=== PATIENT | female | born 1995 | race Asian ===

== ENCOUNTER 2025-05-17 16:31 | Emergency (ER) | payer OTHER, SELFPAY ==
[2025-05-17 16:37] VITALS: BP 127/83
[2025-05-17 17:03] LABS: Hematocrit 38.8 % (37.0-47.0); Hemoglobin 13.1 g/dL (12.0-16.0); Mean Corp Hgb Conc. 33.8 g/dL (33.0-37.0); Mean Corpuscular Volume 86.6 fL (81.0-99.0); Nucleated Red Blood Cells % 0 %; Platelet Count 276 10^3/uL (130-400); Red Cell Dist. Width 12.5 % (11.5-14.5)
[2025-05-17 17:16] LABS: HCG, Serum Qualitative Screen Negative
[2025-05-17 17:20] LABS: ALT (SGPT) 14 U/L (0-35); AST (SGOT) 19 U/L (14-36); Albumin 4.6 g/dl (3.5-5.0); Alkaline Phosphatase 61 U/L (38-126); Blood Urea Nitrogen 6 mg/dl (7-17); Calcium 9.4 mg/dl (8.4-10.2); Carbon Dioxide 25 mmol/L (22-30); Chloride 105 mmol/L (98-107); Glucose 110 mg/dl (70-99); Potassium 3.4 mmol/L (3.5-5.1); Sodium 137 mmol/L (135-145); Total Protein 7.4 g/dl (6.3-8.2); eGFR > 60.00
--- NOTE | 2025-05-17 20:12 | ED.GENMED ---
History of Present Illness
<Mandy Jara MD, Resident - Last Filed: 05/17/25 21:44>
General
Chief Complaint: Headache
Source: patient
Exam Limitations: none
Time Seen by Provider: 05/17/25 19:52
Nursing documentation reviewed up to this point in time: agreed with
History of Present Illness
History of Present Illness:
29-year-old female with no significant past medical history comes to the ED due to having headaches for the past month and a half which have been increasing in intensity and frequency. She describes the headaches as mainly in the front of her head
occasionally goes to the back forming a crown on her head. The used to only last 1 to 2 hours but now they can last the whole day. She says the pain is lingering and is now more sharp. She also describes that she has been getting some blurry
vision alongside the headaches now. She has tried Tylenol Advil and some [id number] migraine medications which seem she does not remember but none of them helped. She was recently on a mission trip to the [facility] [place] in mid March and
she says that her symptoms seem to have gotten worse since then. She does report having some nausea alongside of it and she has been drinking a lot of water. Nausea has been causing her to not eat as much but she tries to have a regular diet. She
does not report any fever but has been noticing some more chills. She does not have any allergies. She does report some numbness in her legs but that is due to her chronic lower back pain that she says has been going on for a long time. Is not
currently taking any meds. She went to urgent care today was told her that she needs to go to the ED to get a CT scan to rule out any intracranial abnormalities.
Past History
<Mandy Jara MD, Resident - Last Filed: 05/17/25 21:44>
Past History
ED Past Medical History: None
ED Past Surgical History: None
Review of Systems
<Mandy Jara MD, Resident - Last Filed: 05/17/25 21:44>
Review of Systems
Allergies reviewed?: Yes
Constitutional: Reports chills
EENT: Reports no symptoms
Respiratory: Reports no symptoms
Cardiac: Reports no symptoms
ABD/GI: Reports nausea; Denies abdominal pain, vomiting or diarrhea
: Reports no symptoms
Musculoskeletal: Reports no symptoms
Skin: Reports no symptoms
Neurological: Reports headache; Denies dizzy, weakness or numbness
Endocrine: Reports no symptoms
Hematologic/Lymphatic: Reports no symptoms
Psychiatric: Reports no symptoms
Phy Exam
<Mandy Jara MD, Resident - Last Filed: 05/17/25 21:44>
General Physical Exam
General Presentation: well appearing and mild distress
General Skin: warm and dry
General Habitus: normal
General Mental: alert
General Hydration: appears well hydrated
Cardiovascular Exam
Cardiovascular Exam: regular rate/rhythm, no edema and no murmur
Pulmonary Exam
Pulmonary Exam: lungs clear, no respiratory distress, no crackles and no wheezing
Gastrointestinal Exam
Gastrointestinal Exam: normal bowel sounds, non tender, soft and non distended
Neurological Exam
Neurological Exam: alert, oriented x3, no motor deficits, no sensory deficits and speech normal
Musculoskeletal Exam
Musculoskeletal Exam: full ROM and no edema
Skin Exam
Skin Exam: normal color and warm/dry
Psychiatric Exam
Psychiatric Exam: normal mood/affect
<Milagros Wang MD - Last Filed: 05/17/25 21:41>
Physical Exam
Physical Exam:
Physical Exam
General: no apparent distress, not acutely ill, well and comfortable appearing, smiling
Neck: supple. no meningeal signs. normal psoterior pharynx
Heart: s1/s2 regular rate and rhythm, no murmur. equal radial pulses.
Lungs: no acute respiratory distress. clear bilaterally
Abdomen: normal bowel sounds. not tender. no CVAT
Neuro: alert and orientedx3. no focal neurological deficits. Extraocular muscles intact. Steady gait
Skin: no rash
Psychiatric: well kept. interactive and cooperative
Extremities: no edema. no calf tenderness. negative homans. good distal pulses
Course
<Mandy Jara MD, Resident - Last Filed: 05/17/25 21:44>
Orders/Labs/Results
Orders:
Orders
05/17/25 16:44
CT Head W/o Iv Contrast Urgent
Comment:
Reason For Exam: headache frontal x 1.5 months
Test Result ONCE
05/17/25 16:52
Complete Blood Count/With Diff Urgent
Comprehensive Metabolic Panel Urgent
HCG, Serum Qualitative Screen Urgent
05/17/25 21:03
Sumatriptan Succinate [Imitrex] 50 mg PO NOW STA
Abnormal Lab Results
05/17/25
16:52
Lymphocytes % 20.1 L %
(20.5-51.1)
Potassium 3.4 L mmol/L
(3.5-5.1)
BUN 6 L mg/dl
(7-17)
Creatinine 0.5 L mg/dL
(0.6-1.0)
Glucose 110 H mg/dl
(70-99)
05/17/25 16:52
05/17/25 16:52
Vital Signs
Initial and Last Documented VS:
Initial Vital Signs
Temp Pulse Resp BP Pulse Ox
98.8 F 85 18 127/83 98
05/17/25 16:37 05/17/25 16:37 05/17/25 16:37 05/17/25 16:37 05/17/25 16:37
Last Documented Vital Signs
Temp Pulse Resp BP Pulse Ox
98.8 F 100 33 127/83 98
05/17/25 16:37 05/17/25 21:09 05/17/25 21:09 05/17/25 16:37 05/17/25 20:19
<Milagros Wang MD - Last Filed: 05/17/25 21:41>
Orders/Labs/Results
Orders:
Orders
05/17/25 16:44
CT Head W/o Iv Contrast Urgent
Comment:
Reason For Exam: headache frontal x 1.5 months
Test Result ONCE
05/17/25 16:52
Complete Blood Count/With Diff Urgent
Comprehensive Metabolic Panel Urgent
HCG, Serum Qualitative Screen Urgent
05/17/25 21:03
Sumatriptan Succinate [Imitrex] 50 mg PO NOW STA
Abnormal Lab Results
05/17/25
16:52
Lymphocytes % 20.1 L %
(20.5-51.1)
Potassium 3.4 L mmol/L
(3.5-5.1)
BUN 6 L mg/dl
(7-17)
Creatinine 0.5 L mg/dL
(0.6-1.0)
Glucose 110 H mg/dl
(70-99)
05/17/25 16:52
05/17/25 16:52
Vital Signs
Initial and Last Documented VS:
Initial Vital Signs
Temp Pulse Resp BP Pulse Ox
98.8 F 85 18 127/83 98
05/17/25 16:37 05/17/25 16:37 05/17/25 16:37 05/17/25 16:37 05/17/25 16:37
Last Documented Vital Signs
Temp Pulse Resp BP Pulse Ox
98.8 F 100 33 127/83 98
05/17/25 16:37 05/17/25 21:09 05/17/25 21:09 05/17/25 16:37 05/17/25 20:19
<Mandy Jara MD, Resident - Last Filed: 05/17/25 21:44>
MDM/Problems Addressed
Differential Diagnosis Includes:
Bandlike tension headache, Migraines, intracranial abnormality, cluster headache
MDM/Problems Addressed:
29-year-old female with no significant past medical history comes to the ED due to worsening headache that been going on for the past one and a half months.
Head CT done, no intracranial abnormalities noted
EKG unremarkable, labs unremarkable
Patient's symptoms most likely are due to migraine headaches
Will provide symptomatic relief and give him sumatriptan. Patient instructed to follow-up with her primary care physician
<Mandy Jara MD, Resident - Last Filed: 05/17/25 21:44>
*Pulse Oximetry
SaO2: 98
Oxygen Mode of Delivery: Room air
Patient hypoxic: no
*Critical Care Note
Total Time (30-74mins, 75-104mins- exclusive of procedures): Not Applicable
<Milagros Wang MD - Last Filed: 05/17/25 21:41>
Patient Management
Social determinants of health affecting care: Living situation and Strong social support
Escalation/DeEscalation of care consider admission/obs:
Patient appears extremely well and comfortable. There is no sign of meningitis. CT head appears normal.
ED Attending Note
<Mandy Jara MD, Resident - Last Filed: 05/17/25 21:44>
-
Portions of this chart may have been created with voice recognition software.� Occasional wrong word or��sound alike� substitutions may have occurred due to the inherent limitations of voice recognition software.
<Milagros Wang MD - Last Filed: 05/17/25 21:41>
ED Attending Note
I performed a history and physical exam of patient and discussed management with resident, I reviewed resident's note and agree with documented findings and plan of care.: Yes
Discharge Plan
Departure
Patient Disposition: Home (Routine Discharge)
Date of Disposition: 05/17/25
Time of Disposition: 21:42
Patient with high blood pressure during this ER visit?: No
Condition: Good
Covid-19: Not Applicable
Discharge Problem:
Migraine headache
Instructions: Migraines (DC), Headache, Adult (DC)
Prescriptions:
New
sumatriptan succinate 50 mg tablet
50 mg PO ONCE Qty: 10 0RF
Referrals:
Mara Lea MD [Non-Admitting Privileges, Psychiatry] - Call in 1-3 days for appt
Referral Note: Follow-up with neurology for your headaches
Milagros Maria MD [Family Provider, Internal Medicine] - Call in 1-3 days for appt
Referral Note: Follow-up with Dr. Maria for further management of your migraine headaches
Activity Restrictions/Additional Instructions:
As discussed, your symptoms are most likely related to migraine headaches
Please take sumatriptan as needed for migraine headache along with Tylenol/Advil. Maximum of 10 times in a month.
Please follow-up with your PCP for further management. Also given information for neurology to follow-up with
Interventions
Interventions:
*Risk Screen - Suicide Last Done: 05/17/25 16:37
*General Assessment Last Done: 05/17/25 16:37
*Neglect/Abuse Screening Last Done: 05/17/25 16:37
*ED- Fall Risk Assessment Last Done: 05/17/25 21:15
*ED COVID-19 Vaccine History Last Done: 05/17/25 21:15
ED- Neurological Assessment Last Done: 05/17/25 19:24
Discharge Date and Time
Print Language: INDONESIAN
[2025-05-17] MEDS: IMITREX 50 MG PO (21:16)
[2025-05-17 21:51] VITALS: BP 103/71
== END 2025-05-17 21:52 | disposition home or self-care (01) ==
LOC: EMR 16:31
PROVIDERS: EMERGENCY PHYSICIAN Emergency Medicine; FAMILY PHYSICIAN Internal Medicine
DX: G43.909 Migraine, unspecified, not intractable, without status migrainosus (principal)
CPT/HCPCS: 99284; 70450; 80053; 84703; 85025